=== PATIENT | female | born 1995 | race American Indian/Alaskan Native ===

== ENCOUNTER 2017-07-11 12:27 | Emergency (ER) | payer SELFPAY ==
--- NOTE | 2017-07-11 15:28 | Emergency Department Report ---
- General Chief complaint: Pain General Stated complaint: LEFT BREAST PAIN Time Seen by Provider: 07/11/17 15:13 Source: patient Mode of arrival: Ambulatory Limitations: No Limitations - History of Present Illness Initial comments: 21-year-old female past medical history none presents with complaint of left breast pain/swelling and slight nipple discharge. Patient states this is been ongoing for 1 week. Patient states she recently had a nipple piercing placed and has subsequently developed an infection of her left nipple/breast. Patient denies nausea or vomiting complains of slight chills since yesterday. Denies any other symptoms related to breast. Patient also incidentally states that her urine is slightly cloudy. States she does have a history of chlamydia. Pt is awake alert and oriented 3 ambulatory and nontoxic appearing. Patient states she removed the piercing from her nipple within the last week. MD complaint: abscess/boil Onset/Timin -: week(s) Tetanus Up to Date: yes Location: chest (left breast) Quality: aching Consistency: constant Worsens with: palpation Context: other (recent piercing to the left nipple.) Treatments Prior to Arrival: none - Related Data Previous Rx's Medication Instructions Recorded Last Taken Type Acetaminophen/Codeine [Tylenol 1 tab PO Q6H PRN #12 tab 07/11/17 Unknown Rx /Codeine # 3 tab] Cephalexin [Keflex] 500 mg PO BID #20 capsule 07/11/17 Unknown Rx Ibuprofen [Motrin] 800 mg PO Q8HR PRN #20 tablet 07/11/17 Unknown Rx Sulfamethoxazole/Trimethoprim 1 each PO BID #20 tablet 07/11/17 Unknown Rx [Bactrim DS TAB] metroNIDAZOLE [Metronidazole] 500 mg PO BID #14 tablet 07/11/17 Unknown Rx Allergies Allergy/AdvReac Type Severity Reaction Status Date / Time No Known Allergies Allergy Unverified 07/11/17 12:32 Abscess Boil HPI - HPI Chief Complaint: Pain General Stated Complaint: LEFT BREAST PAIN Time Seen by Provider: 07/11/17 15:13 Home Medications: Previous Rx's Medication Instructions Recorded Last Taken Type Acetaminophen/Codeine [Tylenol 1 tab PO Q6H PRN #12 tab 07/11/17 Unknown Rx /Codeine # 3 tab] Cephalexin [Keflex] 500 mg PO BID #20 capsule 07/11/17 Unknown Rx Ibuprofen [Motrin] 800 mg PO Q8HR PRN #20 tablet 07/11/17 Unknown Rx Sulfamethoxazole/Trimethoprim 1 each PO BID #20 tablet 07/11/17 Unknown Rx [Bactrim DS TAB] metroNIDAZOLE [Metronidazole] 500 mg PO BID #14 tablet 07/11/17 Unknown Rx Allergies/Adverse Reactions: Allergies Allergy/AdvReac Type Severity Reaction Status Date / Time No Known Allergies Allergy Unverified 07/11/17 12:32 ED Review of Systems ROS: Stated complaint: LEFT BREAST PAIN Other details as noted in HPI Constitutional: denies: chills, fever Eyes: denies: eye pain, eye discharge, vision change ENT: denies: ear pain, throat pain Respiratory: denies: cough, shortness of breath, wheezing Cardiovascular: denies: chest pain, palpitations Endocrine: no symptoms reported Gastrointestinal: denies: abdominal pain, nausea, diarrhea Genitourinary: dysuria, discharge. denies: urgency Musculoskeletal: denies: back pain, joint swelling, arthralgia Skin: denies: rash, lesions Neurological: denies: headache, weakness, paresthesias Psychiatric: denies: anxiety, depression Hematological/Lymphatic: denies: easy bleeding, easy bruising ED Past Medical Hx - Past Medical History Previous Medical History?: No - Surgical History Past Surgical History?: No - Social History Smoking Status: Current Every Day Smoker Substance Use Type: None - Medications Home Medications: Home Medications Medication Instructions Recorded Confirmed Last Taken Type Acetaminophen/Codeine [Tylenol 1 tab PO Q6H PRN #12 tab 07/11/17 Unknown Rx /Codeine # 3 tab] Cephalexin [Keflex] 500 mg PO BID #20 capsule 07/11/17 Unknown Rx Ibuprofen [Motrin] 800 mg PO Q8HR PRN #20 tablet 07/11/17 Unknown Rx Sulfamethoxazole/Trimethoprim 1 each PO BID #20 tablet 07/11/17 Unknown Rx [Bactrim DS TAB] metroNIDAZOLE [Metronidazole] 500 mg PO BID #14 tablet 07/11/17 Unknown Rx ED Physical Exam - General Limitations: No Limitations General appearance: alert, in no apparent distress - Head Head exam: Present: atraumatic, normocephalic - Eye Eye exam: Present: normal appearance, PERRL, EOMI - ENT ENT exam: Present: mucous membranes moist - Neck Neck exam: Present: normal inspection - Respiratory Respiratory exam: Present: normal lung sounds bilaterally. Absent: respiratory distress - Cardiovascular Cardiovascular Exam: Present: regular rate, normal rhythm. Absent: systolic murmur, diastolic murmur, rubs, gallop - GI/Abdominal GI/Abdominal exam: Present: soft, normal bowel sounds - External exam: Present: normal external exam Speculum exam: Present: vaginal discharge (slight whitish vaginal discharge) Bi-manual exam: Present: normal bi-manual exam - Extremities Exam Extremities exam: Present: normal inspection - Back Exam Back exam: Present: normal inspection - Neurological Exam Neurological exam: Present: alert, oriented X3 - Psychiatric Psychiatric exam: Present: normal affect, normal mood - Skin Skin exam: Present: warm, dry, intact, normal color. Absent: rash - Expanded Skin Exam Expanded Type of lesion: Present: abscess (abscess palpable underneath left areole and some surrounding erythema and tenderness) Description of rash: Present: size (approximately 3-5 cm of erythema underlying left nipple), tenderness, erythematous 1 - Abscess here ED Course Vital Signs 07/11/17 07/11/17 12:32 17:04 Temperature 98.3 F Pulse Rate 83 Respiratory 18 18 Rate Blood Pressure 134/72 O2 Sat by Pulse 100 Oximetry ED Medical Decision Making - Lab Data Result diagrams: 07/11/17 15:39 07/11/17 15:44 - Medical Decision Making A/P: Left breast abscess/cellulitis. UTI versus urethritis 1-10 day course of both Bactrim and Keflex twice a day 2- empiric treatment with ceftriaxone and azithromycin 3- Motrin and Tylenol when necessary for pain 4- GC cultures sent, urine culture sent. Wet prep showed 5-case was discussed with Dr. Villafuerte on-call breast surgeon. As per my discussion with Dr. Villafuerte patient is not septic or does not meet SIRS criteria no indication for hospitalization at this time as patient can follow- up as an outpatient for ultrasound-guided aspiration of breast abscess. [email or web address] 6- Critical care attestation.: If time is entered above; I have spent that time in minutes in the direct care of this critically ill patient, excluding procedure time. ED Disposition Clinical Impression: Left breast abscess, Vaginal discharge, Possible exposure to STD Disposition: - TO HOME OR SELFCARE Is pt being admited?: No Does the pt Need Aspirin: No Condition: Stable Instructions: Abscess (ED), Cellulitis (ED), Bacterial Vaginosis (ED), Gonococcal Urethritis (ED) Additional Instructions: Patient advised to follow-up with Dr. Villafuerte tomorrow at [facility] [place]. Patient provided with location and phone number and address. Patient advised to take course of antibiotics and use warm compresses to affected breast. Patient advised to return to the ED for fevers chills nausea vomiting significant spread of cellulitis beyond current borders or worsening pain. Prescriptions: Acetaminophen/Codeine [Tylenol /Codeine # 3 tab] 1 tab PO Q6H PRN #12 tab PRN Reason: Pain Cephalexin [Keflex] 500 mg PO BID #20 capsule Ibuprofen [Motrin] 800 mg PO Q8HR PRN #20 tablet PRN Reason: Pain Sulfamethoxazole/Trimethoprim [Bactrim DS TAB] 1 each PO BID #20 tablet Referrals: JON VILLAFUERTE MD [Staff Physician] - 3-5 Days [facility] [Provider Group] - 3-5 Days Time of Disposition: 17:27
[2017-07-11] MEDS ORDERED: MOTRIN PO ONE (15:29)
[2017-07-11] MEDS ORDERED: ROCEPHIN IM ONE ×2 (15:30→15:41)
[2017-07-11] MEDS ORDERED: XYLOCAINE 1% MPF 5 mL INFILTRATI ONE (15:30)
[2017-07-11] MEDS ORDERED: MOTRIN ONE (15:41)
[2017-07-11] MEDS ORDERED: XYLOCAINE 1% MPF 5 mL ONE (15:42)
[2017-07-11 15:55] LABS: Basophils % (Auto) 0.3 % (0.0-1.8); Eosinophils # (Auto) 0.1 K/mm3 (0.0-0.4); Eosinophils % (Auto) 0.5 % (0.0-4.3); Hematocrit 37.9 % (30.3-42.9); Hemoglobin 12.1 gm/dl (10.1-14.3); Lymphocytes # (Auto) 2.4 K/mm3 (1.2-5.4); Lymphocytes % (Auto) 20.4 % (13.4-35.0); Mean Corpuscular HGB Conc 32 % (30-34); Mean Corpuscular Volume 78 fl (79-97); Monocytes # (Auto) 0.9 K/mm3 (0.0-0.8); Monocytes % (Auto) 7.9 % (0.0-7.3); Platelet Count 239 K/mm3 (140-440); Red Blood Count 4.89 M/mm3 (3.65-5.03); Red Cell Distribution Width 14.6 % (13.2-15.2)
[2017-07-11 15:56] LABS: Mean Corpuscular Hemoglobin 25 pg (28-32)
[2017-07-11 16:32] LABS: BUN/Creatinine Ratio 11; Blood Urea Nitrogen 8 mg/dL (7-17); Calcium 9.3 mg/dL (8.4-10.2); Hemolysis Index 1
[2017-07-11 16:59] LABS: HCG Qualitative,Urine Negative (Negative)
[2017-07-11 17:03] LABS: Bilirubin,Urine NEG (Negative); Blood,Urine NEG (Negative); Color,Urine Yellow (Yellow); Mucus,Urine 1+ /HPF; Protein,Urine <15 mg/dL mg/dL (Negative)
[2017-07-11] MEDS ORDERED: ZITHROMAX PO ONE (17:29)
[2017-07-11 18:04] VITALS: BP 103/68
== END 2017-07-11 18:01 | disposition home or self-care (01) ==
LOC: ED 12:27
DX: N61.1 Abscess of the breast and nipple (principal); N64.52 Nipple discharge; F17.200 Nicotine dependence, unspecified, uncomplicated
CPT/HCPCS: 36415; 76642; 80048; 81001; 81025; 82140; 85025; 87210; 87591; 96372; 99284; J0696